=== PATIENT | male | born 1960 | race Caucasian/White ===

== ENCOUNTER 2023-07-11 11:18 | Inpatient (IN) | payer MEDICAID ==
[~2023-07-11] VITALS: Ht 188 cm; Wt 100.0 kg
--- NOTE | 2023-07-11 11:37 | NUR ---
dr. santos at bedside given orders.
[2023-07-11] MEDS ORDERED: normal saline 1000ml 1,000 ML IV ONE ×3 (11:40→13:40)
[2023-07-11] MEDS ORDERED: ondansetron/PF 4mg/2ml inj IV ONE (11:40)
[2023-07-11] MEDS ORDERED: hydrocortisone sod succ/PF 250mg/2ml inj. IV ONE (11:55)
[2023-07-11] MEDS ORDERED: hydrocortisone sod succ/PF 100mg/2ml inj. IV ONE (12:00)
[2023-07-11 12:48] LABS: BASOPHILS # (AUTO) 0.1 X10'3 (0-0.2); BASOPHILS % (AUTO) 0.3 % (0-1); EOSINOPHILS % (AUTO) 0 % (0-6); HEMATOCRIT 41.1 % (42.0-52.0); HEMOGLOBIN 13.8 g/dl (14.0-17.9); LYMPHOCYTES # (AUTO) 1.9 X10'3 (1.1-4.8); LYMPHOCYTES % (AUTO) 10.2 % (21-51); MEAN CORPUSCULAR HEMOGLOBIN 29.1 PG (27.0-31.0); MEAN CORPUSCULAR HGB CONC 33.6 g/dL (33.0-36.5); MEAN CORPUSCULAR VOLUME 86.8 FL (78-98); MONOCYTES # (AUTO) 2.2 X10'3 (0-0.9); NEUTROPHILS # (AUTO) 14.3 X10'3 (1.8-7.7); NEUTROPHILS % (AUTO) 77.5 % (42-75); PLATELET COUNT 196 X10'3 (140-440); RED BLOOD COUNT 4.74 X10'6 (4.70-6.10); RED CELL DISTRIBUTION WIDTH 13.6 % (11.5-14.5); WHITE BLOOD COUNT 18.5 X10'3 (4.5-11.0)
[2023-07-11] MEDS ORDERED: CefTRIAXone 2gm/D5W 50ml BAG 50 ML IV ONE (13:05)
[2023-07-11 13:13] LABS: ALANINE AMINOTRANSFERASE 66 U/L (12-78); ALBUMIN 3.5 G/DL (3.4-5.0); ALBUMIN/GLOBULIN RATIO 0.9 (1.1-1.5); ALKALINE PHOSPHATASE 193 IU/L (46-116); ANION GAP 12 (8-16); ASPARTATE AMINO TRANSFERASE 96 U/L (10-37); BILIRUBIN,TOTAL 1.5 MG/DL (0.1-1.0); BLOOD UREA NITROGEN 22 MG/DL (7-18); BUN/CREATININE RATIO 17.6 (10.0-20.0); CALCIUM 9.2 MG/DL (8.5-10.1); CHLORIDE 102 MMOL/L (99-107); CREATININE 1.25 MG/DL (0.60-1.10); GLUCOSE 94 MG/DL (70-104); POTASSIUM 3.8 MMOL/L (3.5-5.1); SODIUM 138 MMOL/L (135-145); TOTAL CARBON DIOXIDE 24.5 MMOL/L (24-32); TOTAL PROTEIN 7.4 G/DL (6.4-8.2); eCRCL 71 ML/MIN; eGFR 59 ML/MIN
[2023-07-11 13:52] LABS: BILIRUBIN,URINE NEGATIVE (Neg); CLARITY,URINE CLOUDY (Clear); COLOR,URINE YELLOW (Yellow); GLUCOSE, URINE NEGATIVE (Neg); KETONES,URINE 15 mg/dl (Neg); LEUKOCYTE ESTERASE ,URINE NEGATIVE (Neg); NITRITES, URINE NEGATIVE (Neg); OCCULT BLOOD,URINE MODERATE (Neg); PH,URINE 5.5 (4.8-8.0); PROTEIN,URINE 30 mg/dl (Neg); UROBILINOGEN,URINE 0.2 E.U/dL (0.2-1.0)
[2023-07-11 14:00] LABS: UA COLLECTION TYPE FOLEY CATH
[2023-07-11 14:01] LABS: SQUAMOUS EPITHELIAL CELL,UR FEW /LPF (FEW)
[2023-07-11 14:02] LABS: BACTERIA,URINE 1+ /HPF (Neg); WBC,URINE 0-4 /HPF (0-4)
[2023-07-11 14:14] LABS: PLATELET ESTIMATE NORMAL; TOTAL CELLS COUNTED 100
[2023-07-11 14:22] LABS: URINE AMPHETAMINE SCREEN NEGATIVE (Neg); URINE BARBITUATE SCREEN NEGATIVE (Neg); URINE BENZODIAZEPINES SCREEN NEGATIVE (Neg); URINE CANNABINOID SCREEN NEGATIVE (Neg); URINE COCAINE SCREEN NEGATIVE (Neg); URINE METHADONE SCREEN NEGATIVE (Neg); URINE OPIATE SCREEN NEGATIVE (Neg); URINE PHENCYCLIDINE SCREEN NEGATIVE (Neg)
[2023-07-11] MEDS ORDERED: vancomycin/NS 1 GM ADD-VANTAGE 250 ML IV ONE (14:35)
[2023-07-11] MEDS ORDERED: potassium Cl 40MEQ/1/2NS 520ml 520 ML IV PRN (15:20)
[2023-07-11] MEDS ORDERED: bisacodyl 10mg suppository rectal RC PRN (15:20)
[2023-07-11] MEDS ORDERED: acetaminophen 325mg tablet PO PRN ×2 (15:20)
[2023-07-11] MEDS ORDERED: mag hydrox/Alum hydrox/simeth 30ml oral suspension PO PRN (15:20)
[2023-07-11] MEDS ORDERED: magnesium Cl slow-release 64mg tablet PO PRN (15:20)
[2023-07-11] MEDS ORDERED: magnesium hydroxide 30ml (MOM) UD suspension PO PRN (15:20)
[2023-07-11] MEDS ORDERED: potassium Cl 20 mEq SR tablet PO PRN ×2 (15:20)
[2023-07-11] MEDS ORDERED: HYDROcodone/acetaminophen 10/325mg tab PO PRN (15:20)
[2023-07-11] MEDS ORDERED: HYDROcodone/acetaminophen 5mg/325mg tablet PO PRN (15:20)
[2023-07-11] MEDS ORDERED: magnesium 2GM in 50ml NS 50 ML IV PRN (15:20)
[2023-07-11] MEDS ORDERED: magnesium 4gm in 100ml NS 100 ML IV PRN (15:20)
[2023-07-11] MEDS ORDERED: acetaminophen 650mg rectal suppository RC PRN (15:20)
[2023-07-11] MEDS: normal saline 1000ml 1,000 ML IV SCH (15:20)
[2023-07-11] MEDS ORDERED: ondansetron/PF 4mg/2ml inj IV PRN (15:20)
[2023-07-11] MEDS ORDERED: ondansetron 4mg rapidly disintigrating tab PO PRN (15:20)
[2023-07-11] MEDS: piperacillin/tazo 4.5gm/100ml 100 ML IV SCH (17:33)
--- NOTE | 2023-07-11 18:57 | NUR ---
DR TOBIN PAGED TO NOTIFY OF POSITITVE COVID RESULTS
--- NOTE | 2023-07-11 19:16 | NUR ---
SPOKE TO DR TOBIN HE IS GOING TO CONTACT INFECTIOUS DISEASE REGARDING PATIENT.
[2023-07-11] MEDS ORDERED: REMDESIVIR INJ 200 MG in normal saline 100ml IV soln 100 ML IV ONE (19:40)
[2023-07-11] MEDS: K and/or MAG REPLACEMENT MC SCH (20:00)
[2023-07-11] MEDS ORDERED: hydrocortisone 10mg tablet PO SCH (21:00)
[2023-07-11] MEDS ORDERED: temazepam 15mg capsule PO PRN (21:00)
[2023-07-11 21:07] LABS: APTT 41 SECONDS (22-32); D-DIMER 3.68 MG/L FEU (0-0.50); INR 1.3 INR; PROTHROMBIN TIME 13.6 SECONDS (9.0-12.0)
--- NOTE | 2023-07-11 21:42 | NUR ---
POINT PERSON DAUGHTER CLIFF DAINEL (DAUGHTER) PLEASE CONTACT HER FOR ANY CHANGES IN PATIENT CONDITION OR UPDATES AND SHE WILL DISTRIBUTE INFORMATION TO THE REST OF THE FAMILY PHONE# [phone]
--- NOTE | 2023-07-11 22:00 | NUR ---
PAGE TO DR GOMEZ TO NOTIFY HER OF PATIENT INABILITY TO SWALLOW AND GET ORDER CHANGE ON HYDROCORTISONE.
--- NOTE | 2023-07-11 22:03 | NUR ---
NOTIFIED DR GOMEZ OF PATIENT INABILITY TO SWALLOW APPROPRIATELY HYDROCORTISONE ORDER CHANGED TO DECADRON IV
[2023-07-11] MEDS ORDERED: UNABLE TO OBTAIN (22:31)
[2023-07-12] MEDS: normal saline 1000ml 1,000 ML IV SCH ×2 (01:20→11:50)
[2023-07-12] MEDS: dexamethasone 4mg/ml inj IV SCH ×4 (01:54→21:03)
[2023-07-12] MEDS: piperacillin/tazo 4.5gm/100ml 100 ML IV SCH ×3 (01:54→15:46)
--- NOTE | 2023-07-12 02:23 | NUR ---
PT PULLED OUT IV, HVING COPIOUS AMOUNTS OF THICK BROWN SPUTUM, ORAL SUCTION AND ORAL CARE WITH WET SPONGE PERFORMED, PATIENT PLACED ON HOSPITAL BED FOR COMFORT.
[2023-07-12 08:00] VITALS: RESP 18; O2SAT 96
[2023-07-12] MEDS: K and/or MAG REPLACEMENT MC SCH ×2 (08:00→20:00)
[2023-07-12] MEDS: REMDESIVIR INJ 100 MG in normal saline 100ml IV soln 100 ML IV SCH (08:28)
[2023-07-12 09:53] LABS: BASOPHILS % (AUTO) 0.1 % (0-1); EOSINOPHILS % (AUTO) 0 % (0-6); HEMATOCRIT 36.1 % (42.0-52.0); HEMOGLOBIN 12.5 g/dl (14.0-17.9); LYMPHOCYTES # (AUTO) 0.5 X10'3 (1.1-4.8); MEAN CORPUSCULAR HEMOGLOBIN 29.7 PG (27.0-31.0); MEAN CORPUSCULAR HGB CONC 34.5 g/dL (33.0-36.5); MEAN PLATELET VOLUME 8.6 FL (7.4-10.4); MONOCYTES # (AUTO) 0.4 X10'3 (0-0.9); MONOCYTES % (AUTO) 4.2 % (2-12); NEUTROPHILS % (AUTO) 90.7 % (42-75); PLATELET COUNT 122 X10'3 (140-440); RED BLOOD COUNT 4.19 X10'6 (4.70-6.10); RED CELL DISTRIBUTION WIDTH 13.8 % (11.5-14.5); WHITE BLOOD COUNT 9.9 X10'3 (4.5-11.0)
[2023-07-12 10:08] LABS: ALANINE AMINOTRANSFERASE 40 U/L (12-78); ALBUMIN/GLOBULIN RATIO 0.8 (1.1-1.5); ALKALINE PHOSPHATASE 138 IU/L (46-116); ANION GAP 9 (8-16); ASPARTATE AMINO TRANSFERASE 63 U/L (10-37); BILIRUBIN,TOTAL 0.8 MG/DL (0.1-1.0); BLOOD UREA NITROGEN 15 MG/DL (7-18); BUN/CREATININE RATIO 16.9 (10.0-20.0); C-REACTIVE PROTEIN 17.83 MG/DL (0.0-0.5); CALCIUM 8.7 MG/DL (8.5-10.1); CHLORIDE 108 MMOL/L (99-107); CREATININE 0.89 MG/DL (0.60-1.10); GLUCOSE 153 MG/DL (70-104); POTASSIUM 4.1 MMOL/L (3.5-5.1); SODIUM 140 MMOL/L (135-145); TOTAL CARBON DIOXIDE 23.1 MMOL/L (24-32); TOTAL PROTEIN 6.9 G/DL (6.4-8.2); eCRCL 100 ML/MIN; eGFR 87 ML/MIN
--- NOTE | 2023-07-12 17:46 | NUR ---
Pts skin is CDI.
--- NOTE | 2023-07-12 17:54 | NUR ---
Pt's javascript front end developer is Dr. Jaen Wells. Called and left message to obtain medical records for pt. Phone # is [phone]
[2023-07-12 18:00] VITALS: BP 148/83; PULSE 81; RESP 16; TEMP 98.6; O2SAT 96
--- NOTE | 2023-07-12 18:09 | NUR ---
RE: Mimi in 4005, Dr. Wells called, would like a call back Paulette [phone]
--- NOTE | 2023-07-12 18:32 | NUR ---
Problems reprioritized. Patient report given, questions answered & plan of care reviewed with Ambar.
--- NOTE | 2023-07-12 18:35 | NUR ---
Patient in room ORTHO 4006. I have received report from KARO LAZARO and had the opportunity to ask questions and assume patient care.
[2023-07-12 20:00] VITALS: RESP 18; O2SAT 95
[2023-07-12] MEDS ORDERED: hydrocortisone sod succ/PF 250mg/2ml inj. IV SCH (20:00)
[2023-07-12 22:00] VITALS: BP 144/76; PULSE 78; RESP 16; TEMP 97.6; O2SAT 97
[2023-07-13] MEDS: normal saline 1000ml 1,000 ML IV SCH ×3 (00:07→17:59)
[2023-07-13] MEDS: piperacillin/tazo 4.5gm/100ml 100 ML IV SCH ×4 (00:07→23:52)
[2023-07-13] MEDS: dexamethasone 4mg/ml inj IV SCH ×4 (03:00→20:31)
--- NOTE | 2023-07-13 06:30 | NUR ---
Problems reprioritized. Patient report given, questions answered & plan of care reviewed with RACHELL ALMANZAR.
--- NOTE | 2023-07-13 06:46 | NUR ---
Patient in room ORTHO 4006. I have received report from VARGHESE KWONG RN and had the opportunity to ask questions and assume patient care.
[2023-07-13 07:11] LABS: BASOPHILS % (AUTO) 0.1 % (0-1); EOSINOPHILS % (AUTO) 0 % (0-6); HEMATOCRIT 35.1 % (42.0-52.0); LYMPHOCYTES # (AUTO) 0.7 X10'3 (1.1-4.8); LYMPHOCYTES % (AUTO) 6.5 % (21-51); MEAN CORPUSCULAR HEMOGLOBIN 29.7 PG (27.0-31.0); MEAN CORPUSCULAR HGB CONC 34.3 g/dL (33.0-36.5); MEAN CORPUSCULAR VOLUME 86.6 FL (78-98); MEAN PLATELET VOLUME 9.1 FL (7.4-10.4); MONOCYTES # (AUTO) 0.5 X10'3 (0-0.9); MONOCYTES % (AUTO) 4.5 % (2-12); NEUTROPHILS # (AUTO) 9.2 X10'3 (1.8-7.7); NEUTROPHILS % (AUTO) 88.9 % (42-75); PLATELET COUNT 124 X10'3 (140-440); RED BLOOD COUNT 4.05 X10'6 (4.70-6.10); RED CELL DISTRIBUTION WIDTH 13.8 % (11.5-14.5); WHITE BLOOD COUNT 10.4 X10'3 (4.5-11.0)
[2023-07-13 07:21] LABS: D-DIMER 1.19 MG/L FEU (0-0.50)
[2023-07-13 07:42] LABS: ALANINE AMINOTRANSFERASE 37 U/L (12-78); ALBUMIN 2.9 G/DL (3.4-5.0); ALBUMIN/GLOBULIN RATIO 0.8 (1.1-1.5); ALKALINE PHOSPHATASE 116 IU/L (46-116); ANION GAP 9 (8-16); ASPARTATE AMINO TRANSFERASE 40 U/L (10-37); BILIRUBIN,TOTAL 0.7 MG/DL (0.1-1.0); BLOOD UREA NITROGEN 18 MG/DL (7-18); BUN/CREATININE RATIO 21.2 (10.0-20.0); CALCIUM 8.8 MG/DL (8.5-10.1); CHLORIDE 108 MMOL/L (99-107); CREATININE 0.85 MG/DL (0.60-1.10); GLUCOSE 169 MG/DL (70-104); MAGNESIUM 2.2 MG/DL (1.5-2.4); POTASSIUM 3.5 MMOL/L (3.5-5.1); SODIUM 141 MMOL/L (135-145); TOTAL CARBON DIOXIDE 24.2 MMOL/L (24-32); TOTAL PROTEIN 6.7 G/DL (6.4-8.2); eCRCL 105 ML/MIN; eGFR > 90 ML/MIN
[2023-07-13 08:00] VITALS: BP 154/81; PULSE 67; RESP 16; TEMP 97.9; O2SAT 98
[2023-07-13] MEDS: K and/or MAG REPLACEMENT MC SCH ×2 (08:00→20:00)
[2023-07-13 08:04] LABS: THYROID STIMULATING HORMONE < 0.01 ulU/ml (0.34-4.50)
[2023-07-13] MEDS: REMDESIVIR INJ 100 MG in normal saline 100ml IV soln 100 ML IV SCH (08:52)
[2023-07-13] MEDS: LEVOTHYROXINE SODIUM 100 MCG/5 ML injection IV SCH (08:52)
[2023-07-13 10:00] VITALS: BP 158/80; PULSE 62; RESP 16; TEMP 98; O2SAT 99
--- NOTE | 2023-07-13 12:38 | NUR ---
PAGER ID: [phone] MESSAGE: JENELLE LOVETT, ORTHO, 4092, RE: [phone]. PT. PASSED RN SWALLOW EVALU. IS THE PT. STILL NPO? THANKS
[2023-07-13 15:16] VITALS: RESP 16; O2SAT 99
--- NOTE | 2023-07-13 17:19 | NUR ---
PAGER ID: [phone] MESSAGE: JENELLE LOVETT, ORTHO, 2146. RE: [phone]. PT. BP 166/76, HR- 59. TOOK 2ND TIME AND 160/73, HR-62. NO BP MEDS ON EMAR. PT. STATES TAKES BP MED AT HOME BUT CAN'T REMEBER NAME. THANKS
[2023-07-13 18:00] VITALS: BP 166/76; PULSE 60; RESP 16; TEMP 98; O2SAT 97
--- NOTE | 2023-07-13 18:35 | NUR ---
Problems reprioritized. Patient report given TO VARGHESE KWONG RN, questions answered & plan of care reviewed with .
--- NOTE | 2023-07-13 18:40 | NUR ---
Patient in room ORTHO 4006. I have received report from RACHELL ALMANZAR and had the opportunity to ask questions and assume patient care.
[2023-07-13 20:00] VITALS: RESP 18; O2SAT 96
[2023-07-13 22:00] VITALS: BP 158/87; PULSE 63; RESP 16; TEMP 98.3; O2SAT 96
[2023-07-14] MEDS: normal saline 1000ml 1,000 ML IV SCH ×2 (00:39→15:04)
[2023-07-14] MEDS: dexamethasone 4mg/ml inj IV SCH ×4 (02:00→19:21)
[2023-07-14 06:12] LABS: MEAN PLATELET VOLUME 8.8 FL (7.4-10.4); PLATELET COUNT 124 X10'3 (140-440); RED CELL DISTRIBUTION WIDTH 13.5 % (11.5-14.5)
[2023-07-14 06:15] LABS: BASOPHILS % (AUTO) 0 % (0-1); EOSINOPHILS % (AUTO) 0 % (0-6); HEMATOCRIT 32.6 % (42.0-52.0); HEMOGLOBIN 11.6 g/dl (14.0-17.9); LYMPHOCYTES # (AUTO) 0.9 X10'3 (1.1-4.8); MEAN CORPUSCULAR HEMOGLOBIN 30.3 PG (27.0-31.0); MEAN CORPUSCULAR HGB CONC 35.5 g/dL (33.0-36.5); MEAN CORPUSCULAR VOLUME 85.4 FL (78-98); MONOCYTES # (AUTO) 0.9 X10'3 (0-0.9); MONOCYTES % (AUTO) 7.9 % (2-12); NEUTROPHILS # (AUTO) 9.2 X10'3 (1.8-7.7); NEUTROPHILS % (AUTO) 84.1 % (42-75); RED BLOOD COUNT 3.82 X10'6 (4.70-6.10)
[2023-07-14 06:24] LABS: D-DIMER 1.18 MG/L FEU (0-0.50)
--- NOTE | 2023-07-14 06:26 | NUR ---
Problems reprioritized. Patient report given, questions answered & plan of care reviewed with ADRIANO LAZARO.
[2023-07-14 06:30] VITALS: BP 167/77; PULSE 53; RESP 16; TEMP 97.3; O2SAT 96
[2023-07-14 06:44] LABS: ALANINE AMINOTRANSFERASE 26 U/L (12-78); ALBUMIN 2.7 G/DL (3.4-5.0); ALBUMIN/GLOBULIN RATIO 0.8 (1.1-1.5); ALKALINE PHOSPHATASE 93 IU/L (46-116); ANION GAP 8 (8-16); ASPARTATE AMINO TRANSFERASE 27 U/L (10-37); BILIRUBIN,TOTAL 0.7 MG/DL (0.1-1.0); BLOOD UREA NITROGEN 19 MG/DL (7-18); C-REACTIVE PROTEIN 3.55 MG/DL (0.0-0.5); CALCIUM 8.5 MG/DL (8.5-10.1); CHLORIDE 107 MMOL/L (99-107); CREATININE 0.76 MG/DL (0.60-1.10); GLUCOSE 173 MG/DL (70-104); MAGNESIUM 2.2 MG/DL (1.5-2.4); POTASSIUM 3.8 MMOL/L (3.5-5.1); SODIUM 140 MMOL/L (135-145); TOTAL CARBON DIOXIDE 24.9 MMOL/L (24-32); TOTAL PROTEIN 6.1 G/DL (6.4-8.2); eCRCL 117 ML/MIN; eGFR > 90 ML/MIN
[2023-07-14] MEDS: piperacillin/tazo 4.5gm/100ml 100 ML IV SCH ×2 (07:20→15:04)
--- NOTE | 2023-07-14 07:31 | NUR ---
CALLED PHARMACY IN REGARDS TO NOT HAVING THE REMDESIVIR AVAILABLE ON THE FLOOR YET, THE PHARMACY SAID THAT THEY ARE OUT OF THIS MEDICATION AND THAT THEY ARE IN CONTACT WITH [facility] ABOUT THE MEDICATION AND THE PHARMACY TOLD ME THAT THEY WILL CONTACT THEIR DIRECTOR WELL IN REGARD TO THIS MEDICATION, NO MEDICATION AVAILABLE AT THIS TIME, I TOLD THE PRIMARY NURSE TO LET THE HOSPITALIST KNOW ABOUT THE REMDESIVER NOT BEING AVAILABLE FOR THIS PATIENT
[2023-07-14] MEDS: K and/or MAG REPLACEMENT MC SCH ×2 (08:00→19:45)
--- NOTE | 2023-07-14 08:10 | NUR ---
PHARMACY DELIVERED THE REMDESIVIR DOSE FOR TODAY AND TOLD ME THAT THEY ARE SUPPOSED TO GET MORE OF THE MEDICATION IN TOMORROW
[2023-07-14] MEDS: REMDESIVIR INJ 100 MG in normal saline 100ml IV soln 100 ML IV SCH (08:12)
[2023-07-14] MEDS: LEVOTHYROXINE SODIUM 100 MCG/5 ML injection IV SCH (08:14)
[2023-07-14] MEDS ORDERED: hydrALAZINE 20mg/ml inj. IV PRN (10:10)
[2023-07-14 10:30] VITALS: BP 159/76; PULSE 79; RESP 15; TEMP 98; O2SAT 98
[2023-07-14] MEDS: amLODIPine 5mg tablet PO SCH (15:03)
--- NOTE | 2023-07-14 16:17 | NUR ---
Patient alert with some confusion. Spoke with daughter and she said patient is definitely not to baseline and doesnt usually talk in the soft voice he has been using. Patient was confused when we asked what president was in office and unable to answer the correct 2022 President. Patient denies any pain BP have been running high. Denies any N/V/F MD notified. All safety measures in place and call light in reach. Will continue to monitor.
[2023-07-14 18:00] VITALS: BP 153/73; PULSE 55; RESP 17; TEMP 98; O2SAT 96
[2023-07-14 20:00] VITALS: RESP 17; O2SAT 96
[2023-07-14 22:00] VITALS: BP 160/67; PULSE 57; RESP 18; TEMP 99; O2SAT 97
[2023-07-15] VITALS (7 sets, daily range): BP systolic 154–177; BP diastolic 68–84; PULSE 61–75; RESP 16–18; TEMP 97.6–98.8; O2SAT 97–98
[2023-07-15] MEDS: piperacillin/tazo 4.5gm/100ml 100 ML IV SCH ×4 (00:19→23:51)
[2023-07-15] MEDS: normal saline 1000ml 1,000 ML IV SCH ×3 (00:30→21:06)
[2023-07-15] MEDS: dexamethasone 4mg/ml inj IV SCH ×4 (02:16→19:17)
--- NOTE | 2023-07-15 06:40 | NUR ---
I have received report from JENELLE Duarte and had the opportunity to ask questions and assume patient care. No distress at this time.
--- NOTE | 2023-07-15 06:41 | NUR ---
Problems reprioritized. Patient report given, questions answered & plan of care reviewed with nicole Son.
[2023-07-15 07:03] LABS: BASOPHILS % (AUTO) 0 % (0-1); EOSINOPHILS % (AUTO) 0 % (0-6); HEMATOCRIT 34.2 % (42.0-52.0); HEMOGLOBIN 11.7 g/dl (14.0-17.9); LYMPHOCYTES # (AUTO) 0.8 X10'3 (1.1-4.8); LYMPHOCYTES % (AUTO) 7.7 % (21-51); MEAN CORPUSCULAR HEMOGLOBIN 29.5 PG (27.0-31.0); MEAN CORPUSCULAR HGB CONC 34.4 g/dL (33.0-36.5); MEAN CORPUSCULAR VOLUME 85.8 FL (78-98); MEAN PLATELET VOLUME 8.8 FL (7.4-10.4); MONOCYTES # (AUTO) 0.9 X10'3 (0-0.9); MONOCYTES % (AUTO) 8.3 % (2-12); NEUTROPHILS # (AUTO) 8.8 X10'3 (1.8-7.7); PLATELET COUNT 130 X10'3 (140-440); RED BLOOD COUNT 3.98 X10'6 (4.70-6.10); RED CELL DISTRIBUTION WIDTH 13.3 % (11.5-14.5); WHITE BLOOD COUNT 10.5 X10'3 (4.5-11.0)
[2023-07-15 07:10] LABS: D-DIMER 3.11 MG/L FEU (0-0.50)
[2023-07-15 07:18] LABS: ALANINE AMINOTRANSFERASE 22 U/L (12-78); ALBUMIN 2.6 G/DL (3.4-5.0); ALBUMIN/GLOBULIN RATIO 0.8 (1.1-1.5); ALKALINE PHOSPHATASE 77 IU/L (46-116); ANION GAP 8 (8-16); ASPARTATE AMINO TRANSFERASE 20 U/L (10-37); BILIRUBIN,TOTAL 0.8 MG/DL (0.1-1.0); BLOOD UREA NITROGEN 16 MG/DL (7-18); BUN/CREATININE RATIO 20.5 (10.0-20.0); C-REACTIVE PROTEIN 1.68 MG/DL (0.0-0.5); CALCIUM 8.2 MG/DL (8.5-10.1); CHLORIDE 106 MMOL/L (99-107); CREATININE 0.78 MG/DL (0.60-1.10); GLUCOSE 160 MG/DL (70-104); MAGNESIUM 2.2 MG/DL (1.5-2.4); POTASSIUM 4.2 MMOL/L (3.5-5.1); SODIUM 139 MMOL/L (135-145); eCRCL 114 ML/MIN; eGFR > 90 ML/MIN
[2023-07-15] MEDS: LEVOTHYROXINE SODIUM 100 MCG/5 ML injection IV SCH (07:29)
[2023-07-15] MEDS: K and/or MAG REPLACEMENT MC SCH ×2 (08:00→20:00)
[2023-07-15] MEDS: enoxaparin 40mg/0.4ml syringe SUBCUT SCH ×2 (08:00→19:17)
[2023-07-15] MEDS: amLODIPine 5mg tablet PO SCH (08:00)
[2023-07-15 08:27] LABS: PLATELET ESTIMATE DECREASED; TOTAL CELLS COUNTED 100
[2023-07-15 08:28] LABS: ANISOCYTOSIS 1+; POIKILOCYTOSIS 1+
--- NOTE | 2023-07-15 09:43 | NUR ---
called pharmacy earlier about the remdesivir being available, pharmacy told me that they would look into it and get back to me, i called pharmacy again in regard to the remdesivir and pharmacy told me that they are waiting for remdesivir to be delivered
[2023-07-15] MEDS ORDERED: REMDESIVIR INJ 100 MG in normal saline 100ml IV soln 100 ML IV SCH (10:15)
[2023-07-15] MEDS: REMDESIVIR INJ 100 MG in normal saline 100ml IV soln 100 ML IV SCH (10:44)
[2023-07-15 11:02] LABS: HEMOGLOBIN A1C 5.6 % (4.5-6.2)
[2023-07-15] MEDS ORDERED: TEST75GE5 TOP (14:54)
[2023-07-15] MEDS ORDERED: ERGO500093 PO (14:54)
[2023-07-15] MEDS ORDERED: LISI10TA27 PO (14:54)
[2023-07-15] MEDS ORDERED: HYDR5TAB14 PO (14:54)
[2023-07-15] MEDS ORDERED: ROSU20TA73 PO (14:54)
[2023-07-15] MEDS ORDERED: LEVO137T2 PO (14:54)
--- NOTE | 2023-07-15 18:08 | NUR ---
Problems reprioritized. Patient report given, questions answered & plan of care reviewed with JENELLE Duarte.
[2023-07-15] MEDS: hydrocortisone 10mg tablet PO SCH (19:20)
[2023-07-16] MEDS: dexamethasone 4mg/ml inj IV SCH (01:51)
[2023-07-16 06:22] LABS: BASOPHILS % (AUTO) 0.1 % (0-1); EOSINOPHILS % (AUTO) 0 % (0-6); HEMATOCRIT 33.9 % (42.0-52.0); HEMOGLOBIN 11.9 g/dl (14.0-17.9); LYMPHOCYTES # (AUTO) 0.8 X10'3 (1.1-4.8); LYMPHOCYTES % (AUTO) 5.6 % (21-51); MEAN CORPUSCULAR HEMOGLOBIN 29.4 PG (27.0-31.0); MEAN CORPUSCULAR HGB CONC 35.1 g/dL (33.0-36.5); MEAN CORPUSCULAR VOLUME 83.9 FL (78-98); MEAN PLATELET VOLUME 8.6 FL (7.4-10.4); MONOCYTES % (AUTO) 7.5 % (2-12); NEUTROPHILS # (AUTO) 12.2 X10'3 (1.8-7.7); NEUTROPHILS % (AUTO) 86.8 % (42-75); PLATELET COUNT 166 X10'3 (140-440); RED BLOOD COUNT 4.03 X10'6 (4.70-6.10); RED CELL DISTRIBUTION WIDTH 13.2 % (11.5-14.5); WHITE BLOOD COUNT 14.1 X10'3 (4.5-11.0)
[2023-07-16 06:25] LABS: D-DIMER 4.37 MG/L FEU (0-0.50)
--- NOTE | 2023-07-16 06:33 | NUR ---
Problems reprioritized. Patient report given, questions answered & plan of care reviewed with scott Hollis.
[2023-07-16 06:45] LABS: ALANINE AMINOTRANSFERASE 20 U/L (12-78); ALBUMIN 2.6 G/DL (3.4-5.0); ALBUMIN/GLOBULIN RATIO 0.8 (1.1-1.5); ALKALINE PHOSPHATASE 69 IU/L (46-116); ANION GAP 7 (8-16); ASPARTATE AMINO TRANSFERASE 19 U/L (10-37); BILIRUBIN,TOTAL 0.8 MG/DL (0.1-1.0); BLOOD UREA NITROGEN 15 MG/DL (7-18); BUN/CREATININE RATIO 20.3 (10.0-20.0); C-REACTIVE PROTEIN 0.98 MG/DL (0.0-0.5); CALCIUM 8.1 MG/DL (8.5-10.1); CHLORIDE 106 MMOL/L (99-107); CREATININE 0.74 MG/DL (0.60-1.10); FREE T4 (FREE THYROXINE) 1.55 NG/DL (0.73-1.40); GLUCOSE 170 MG/DL (70-104); POTASSIUM 3.7 MMOL/L (3.5-5.1); SODIUM 136 MMOL/L (135-145); TOTAL CARBON DIOXIDE 23.5 MMOL/L (24-32); TOTAL PROTEIN 5.8 G/DL (6.4-8.2); eCRCL 120 ML/MIN; eGFR > 90 ML/MIN
[2023-07-16 07:08] VITALS: BP 158/73; PULSE 62; RESP 16; TEMP 98.6; O2SAT 96
[2023-07-16] MEDS: hydrocortisone 10mg tablet PO SCH ×2 (07:43→19:34)
[2023-07-16] MEDS: atorvastatin 20mg tablet PO SCH (07:43)
[2023-07-16] MEDS: levoTHYROXINE 25mcg tablet PO SCH (07:44)
[2023-07-16] MEDS: levoTHYROXINE 112mcg tablet PO SCH (07:44)
[2023-07-16] MEDS: piperacillin/tazo 4.5gm/100ml 100 ML IV SCH (07:45)
[2023-07-16] MEDS: amLODIPine 5mg tablet PO SCH (07:46)
[2023-07-16] MEDS: lisinopril 10 MG tablet PO SCH (07:46)
[2023-07-16] MEDS: enoxaparin 40mg/0.4ml syringe SUBCUT SCH ×2 (07:47→19:34)
[2023-07-16] MEDS ORDERED: dexamethasone 4mg/ml inj IV SCH (08:00)
[2023-07-16] MEDS: K and/or MAG REPLACEMENT MC SCH ×2 (08:00→19:45)
[2023-07-16 08:09] VITALS: RESP 20; O2SAT 96
[2023-07-16 08:32] LABS: INR 1.2 INR
[2023-07-16] MEDS: normal saline 1000ml 1,000 ML IV SCH (09:34)
[2023-07-16 09:53] LABS: TOTAL CELLS COUNTED 100
[2023-07-16 09:54] LABS: PLATELET ESTIMATE NORMAL
[2023-07-16 09:56] LABS: ANISOCYTOSIS FEW
--- NOTE | 2023-07-16 11:54 | NUR ---
Initial: Pt admit DX COVID-19, aspiration PNA vomited while unconscious, and CHANCE w/ sepsis both now resolved per MD note. Pt PO ~28% initial regular diet not meeting estimated needs. Initially w/ N/V/diarrhea last nausea episode 9/10 AM per EMR likely influencing PO trends. RD contact pt via TC; pt confirms nausea after intake persists and lower appetite is agreeable to chocolate Ensure Plus High Protein TIDWM to assist meeting needs-MD notified. Zofran PRN last 07/13 22:09 per EMR; RD d/w RN regarding Zofran more routinely at meals if MD agreeable. LBM 07/15 two BM's per EMR. Will monitor for further PO acceptance and nutrition intervention needs this admit. Rec: 1. continue regular diet; encourage PO 2. chocolate Ensure Plus High Protein TIDWM; pending physician verification in EMR 3. bowel care per rx; PRN Zofran available if nausea persists per EMR 4. scaled wt this admit; subsequent weekly wt Addendum: 07/16/23 at [address] Amended: Links added.
[2023-07-16] MEDS ORDERED: iohexol 300mg/ml 100ml inj. ONE (12:10)
[2023-07-16 18:00] VITALS: BP 137/71; PULSE 74; RESP 15; TEMP 97.6; O2SAT 97
[2023-07-16 20:00] VITALS: RESP 16; O2SAT 96
[2023-07-16 22:00] VITALS: BP 145/85; PULSE 76; RESP 16; TEMP 98.2; O2SAT 96
[2023-07-17 06:00] VITALS: BP 116/70; PULSE 73; RESP 16; TEMP 98.7; O2SAT 97
--- NOTE | 2023-07-17 06:34 | NUR ---
Problems reprioritized. Patient report given, questions answered & plan of care reviewed with JENELLE JEFF.
[2023-07-17 07:50] VITALS: RESP 18
[2023-07-17] MEDS: K and/or MAG REPLACEMENT MC SCH (08:00)
[2023-07-17 09:20] LABS: ALBUMIN 2.6 G/DL (3.4-5.0); ANION GAP 8 (8-16); BLOOD UREA NITROGEN 21 MG/DL (7-18); BUN/CREATININE RATIO 29.2 (10.0-20.0); CALCIUM 8.1 MG/DL (8.5-10.1); CHLORIDE 104 MMOL/L (99-107); CREATININE 0.72 MG/DL (0.60-1.10); GLUCOSE 146 MG/DL (70-104); POTASSIUM 3.8 MMOL/L (3.5-5.1); SODIUM 136 MMOL/L (135-145); TOTAL CARBON DIOXIDE 23.7 MMOL/L (24-32); eCRCL 124 ML/MIN; eGFR > 90 ML/MIN
[2023-07-17 09:26] LABS: BASOPHILS % (AUTO) 0.2 % (0-1); EOSINOPHILS % (AUTO) 0 % (0-6); HEMATOCRIT 33.5 % (42.0-52.0); HEMOGLOBIN 11.7 g/dl (14.0-17.9); LYMPHOCYTES # (AUTO) 1.1 X10'3 (1.1-4.8); LYMPHOCYTES % (AUTO) 5.7 % (21-51); MEAN CORPUSCULAR HEMOGLOBIN 29.3 PG (27.0-31.0); MEAN CORPUSCULAR HGB CONC 34.9 g/dL (33.0-36.5); MEAN CORPUSCULAR VOLUME 83.9 FL (78-98); MEAN PLATELET VOLUME 8.6 FL (7.4-10.4); MONOCYTES # (AUTO) 1.9 X10'3 (0-0.9); NEUTROPHILS % (AUTO) 84.1 % (42-75); PLATELET COUNT 213 X10'3 (140-440); RED BLOOD COUNT 3.99 X10'6 (4.70-6.10); RED CELL DISTRIBUTION WIDTH 13.4 % (11.5-14.5); WHITE BLOOD COUNT 19.1 X10'3 (4.5-11.0)
[2023-07-17 09:45] VITALS: BP 126/70; PULSE 61; RESP 16; TEMP 98.1; O2SAT 96
[2023-07-17] MEDS: hydrocortisone 10mg tablet PO SCH (09:49)
[2023-07-17] MEDS: atorvastatin 20mg tablet PO SCH (09:50)
[2023-07-17] MEDS: levoTHYROXINE 25mcg tablet PO SCH (09:51)
[2023-07-17] MEDS: levoTHYROXINE 112mcg tablet PO SCH (09:51)
[2023-07-17] MEDS: amLODIPine 5mg tablet PO SCH (09:52)
[2023-07-17] MEDS: lisinopril 10 MG tablet PO SCH (09:53)
[2023-07-17] MEDS: enoxaparin 40mg/0.4ml syringe SUBCUT SCH (09:53)
--- NOTE | 2023-07-17 11:30 | NUR ---
Dr Melissa called, request patient not take a shower as he has not been evaluated by PT. I went to room and patient was already in the shower. Shower seat in place.
--- NOTE | 2023-07-17 11:50 | NUR ---
Patient is lying on his bed talking on the phone with family. States he feels much better after having shower and brushing his teeth.
[2023-07-17 12:14] LABS: PLATELET ESTIMATE NORMAL; TOTAL CELLS COUNTED 100
[2023-07-17 12:15] LABS: ANISOCYTOSIS FEW
--- NOTE | 2023-07-17 13:30 | NUR ---
sister here to take patient home. dc instructions reviewed with patient and sister. Advised to make sure Dr aware of need for repeat blood draw to monitor labs. Continue isolation precautions for 4 more days.
[2023-07-17] MEDS ORDERED: hydrocortisone 10mg tablet PO SCH (20:00)
== END 2023-07-17 13:38 | disposition home health service (06) | DRG 720 ==
LOC: ER 11:22 → ED HOLD 15:37 → ORTHO 4S 07-12 08:00
PROVIDERS: ADMIT Family Medicine; ATTEND Family Medicine
PROC: XW033E5 Introduction of Remdesivir Anti-infective into Peripheral Vein, Percutaneous Approach, New Technology Group 5 (ICD-10-PCS; 2023-07-15)
PROC: B32T1ZZ Computerized Tomography (CT Scan) of Left Pulmonary Artery using Low Osmolar Contrast (ICD-10-PCS; principal; 2023-07-16)
PROC: B3201ZZ Computerized Tomography (CT Scan) of Thoracic Aorta using Low Osmolar Contrast (ICD-10-PCS; 2023-07-16)
PROC: B32S1ZZ Computerized Tomography (CT Scan) of Right Pulmonary Artery using Low Osmolar Contrast (ICD-10-PCS; 2023-07-16)
DX: A41.9 Sepsis, unspecified organism (principal); J69.0 Pneumonitis due to inhalation of food and vomit; J12.82 Pneumonia due to coronavirus disease 2019; G93.41 Metabolic encephalopathy; U07.1 COVID-19; N17.9 Acute kidney failure, unspecified; E27.40 Unspecified adrenocortical insufficiency; E80.6 Other disorders of bilirubin metabolism; I10 Essential (primary) hypertension; E03.9 Hypothyroidism, unspecified; R13.10 Dysphagia, unspecified; E89.3 Postprocedural hypopituitarism; E86.0 Dehydration
CPT/HCPCS: 36415; 70450; 71045; 71250; 71275; 74176; 80048; 80053; 80305; 81001; 83036; 83605; 83735; 84145; 84439; 84443; 85007; 85025; 85379; 85610; 85730; 86140; 87040; 87081; 87811; 92508; 92616; 93970; 96365; 96375; 97110; 97116; 97161; 97530; 99285; A4340; A4615; C1758; G0378; J0360; J0696; J1100; J1650; J1720; J2405; J2543; J3370; J3490; J7030; Q9967